=== PATIENT | female | born 1960 | race Two or more races ===

== ENCOUNTER 2022-06-14 17:26 | Emergency (ER) | payer OTHER ==
[~2022-06-14] VITALS: Ht 160 cm; Wt 79.4 kg
--- NOTE | 2022-06-14 17:45 | NUR ---
RECIVED PT 62 YRS FEMALE WALKING IN FROM HOME C/O DIZZNESS AND PALPTION DINESES CHEST PAIN OR SOB
--- NOTE | 2022-06-14 17:50 | NUR ---
EKG DONE AT BED SIDE
[2022-06-14] MEDS ORDERED: MECLIZINE HCL 12.5 MG TABLET PO ONE (18:00)
--- NOTE | 2022-06-14 18:00 | NUR ---
INSERTED ANGO catheter g 20 on lac blood drow and sent to lab
[2022-06-14] MEDS ORDERED: MECLIZINE HCL 25 MG TABLET ONE (18:06)
--- NOTE | 2022-06-14 18:20 | NUR ---
TO ct scan OF HEAD VIA JANE
[2022-06-14 18:25] LABS: BASOPHILS # (AUTO) 0.1 K/uL (0.0-0.2); EOSINOPHILS % (AUTO) 2.7 % (0.0-6.0); HEMATOCRIT 39 % (33-45); HEMOGLOBIN 13.4 g/dL (11.5-14.8); LYMPHOCYTES # (AUTO) 1.9 K/uL (0.8-4.8); LYMPHOCYTES % (AUTO) 28.9 % (20.0-44.0); MEAN CORPUSCULAR HGB CONC 34 g/dl (31.0-36.0); MEAN CORPUSCULAR VOLUME 85 fL (82-100); MONOCYTES # (AUTO) 0.7 K/uL (0.1-1.30); MONOCYTES % (AUTO) 10.3 % (2.0-12.0); NEUTROPHILS # (AUTO) 3.7 K/uL (1.8-8.9); NEUTROPHILS % (AUTO) 57.1 % (43.0-81.0); PLATELET COUNT (AUTO) 274 K/uL (150-450); RED BLOOD CELL COUNT(AUTO) 4.62 MIL/uL (4.0-5.2); WHITE BLOOD COUNT (AUTO) 6.5 K/uL (4.3-11.0)
--- NOTE | 2022-06-14 18:30 | NUR ---
BACK FROM CT SCAN DONE
[2022-06-14 18:47] LABS: ALKALINE PHOSPHATASE 105 U/L (46-116); BILIRUBIN,DIRECT 0.1 mg/dL (0.0-0.2); BILIRUBIN,TOTAL 0.3 mg/dL (0.2-1.0); CALCIUM, SERUM 9.4 mg/dL (8.5-10.1); CARBON DIOXIDE 30 mmol/L (21-32); CHLORIDE 103 mmol/L (98-107); CREATININE 0.7 mg/dL (0.6-1.3); GLUCOSE 106 mg/dL (74-106); POTASSIUM 3.8 mmol/L (3.5-5.1); SODIUM SERUM 140 mmol/L (136-145); UREA NITROGEN, BLOOD 16 mg/dL (7-18)
[2022-06-14 18:48] LABS: ALANINE AMINOTRANSFERASE 41 U/L (12-78); ALBUMIN 3.9 g/dL (3.4-5.0); ASPARTATE AMINOTRANSFERASE 24 U/L (15-37); TOTAL PROTEIN, SERUM 7.5 g/dL (6.4-8.2)
--- NOTE | 2022-06-14 19:01 | NUR ---
UA SENT TO LAB
--- NOTE | 2022-06-14 19:30 | NUR ---
HAND OFF AMANDA DIAZ
[2022-06-14] MEDS ORDERED: FAMO20TA8 PO (19:47)
[2022-06-14] MEDS ORDERED: MECL-182 PO (19:47)
[2022-06-14] MEDS ORDERED: MAG355OR18 PO (19:47)
[2022-06-14 19:58] VITALS: BP 132/88
== END 2022-06-14 19:58 | disposition home or self-care (01) ==
LOC: ER 17:36
DX: R42 Dizziness and giddiness (principal); K21.9 Gastro-esophageal reflux disease without esophagitis; Z79.899 Other long term (current) drug therapy
CPT/HCPCS: 99285; 70450; 71045; 93005; 85025; 80048; 80076; 36415; 84484; 85730; J8597